=== PATIENT | male | born 1935 | race Caucasian/White ===

== ENCOUNTER 2022-01-30 07:58 | Outpatient (CLI) | payer MEDICARE, BC ==
[2022-01-30 21:01] LABS: SARS-CoV-2 PCR by NAA Not Detected (NotDetected)
== END 2022-01-30 07:59 | disposition home or self-care (01) ==
LOC: CSHLAB 07:58
PROVIDERS: ATTEND Family Medicine
DX: Z20.822 Contact with and (suspected) exposure to COVID-19 (principal)
CPT/HCPCS: U0003; U0005

== ENCOUNTER 2022-02-02 09:56 | Outpatient (CLI) | payer MEDICARE, BC | END 2022-02-02 09:57 | disposition home or self-care (01) | LOC: CSHRAD 09:56 | PROVIDERS: ATTEND Otolaryngology Plastic Surgery within the Head & Neck | DX: R13.10 Dysphagia, unspecified (principal); R63.30 Feeding difficulties, unspecified; K44.9 Diaphragmatic hernia without obstruction or gangrene; K21.9 Gastro-esophageal reflux disease without esophagitis; K22.4 Dyskinesia of esophagus | CPT/HCPCS: 74220; 74230 ==